=== PATIENT | female | born 1945 | race African-American/Black ===

== ENCOUNTER 2023-12-16 15:55 | Emergency (ER) | payer MEDICARE, MEDICAID ==
[~2023-12-16] VITALS: Ht 152.4 cm; Wt 65.0 kg
[2023-12-16 15:58] VITALS: O2SAT 95
[2023-12-16 16:34] LABS: BASOPHILS % 0.1 % (0.0-2.0); EOSINOPHILS % 0.1 % (0.0-5.0); HEMATOCRIT. 36.5 % (36.0-48.0); HEMOGLOBIN. 12.2 g/dL (12.0-16.0); MEAN CORPUSCULAR HEMOGLOBIN 28.8 pg (28.0-32.0); MEAN CORPUSCULAR HGB CONC 33.3 g/dL (31.0-37.0); MEAN CORPUSCULAR VOLUME 86.5 fL (81.0-99.0); MEAN PLATELET VOLUME 8.2 fl (7.4-10.4); MONOCYTES % 12.7 % (2.0-8.0); NEUTROPHILS % 78.1 % (40.0-76.0); PLATELET 243 x1000/uL (130-400); RED BLOOD CELL COUNT 4.22 mill/uL (4.2-5.4); WHITE BLOOD COUNT 11.9 x1000/uL (4.5-11.0)
[2023-12-16 16:38] LABS: CHLORIDE 102 mEq/L (98-107); POTASSIUM 3.4 mEq/L (3.5-5.1); SODIUM 135 mEq/L (136-145)
[2023-12-16 16:39] LABS: CARBON DIOXIDE 27 mEq/L (21-32)
[2023-12-16 16:40] LABS: CALCIUM 9.7 mg/dL (8.7-10.4)
[2023-12-16 16:44] LABS: CREATININE 0.9 mg/dL (0.6-1.0); GLUCOSE 135 mg/dL (70-105); UREA NITROGEN BLOOD 9 mg/dL (9-23)
[2023-12-16 16:45] LABS: TROPONIN I HIGH SENSITIVITY 7 ng/L (3.0-34)
[2023-12-16 16:46] LABS: ALANINE AMINOTRANSFERASE 29 IU/L (10-49); ALBUMIN 4.2 g/dL (3.2-4.8); ASPARTATE AMINOTRANSFERASE 27 IU/L (<34); BILIRUBIN TOTAL 0.9 mg/dL (0.1-1.0)
[2023-12-16 16:47] LABS: PROTEIN TOTAL 7.9 g/dL (6.0-8.3)
[2023-12-16] MEDS: SODIUM CHLORIDE 0.9% 1,000 ML IV ONE (17:35)
[2023-12-16 19:30] VITALS: TEMP 97.8
[2023-12-16 19:37] LABS: TROPONIN I HIGH SENSITIVITY 7 ng/L (3.0-34)
[2023-12-16 21:21] LABS: CLARITY URINE CLOUDY (CLEAR); COLOR URINE DARK YELLOW (YELLOW); GLUCOSE URINE NEGATIVE (NEGATIVE); KETONES URINE TRACE (NEGATIVE); LEUKOCYTE ESTERASE URINE 3+ (NEGATIVE); NITRITE URINE NEGATIVE (NEGATIVE); OCCULT BLOOD URINE 3+ (NEGATIVE); PROTEIN URINE 2+ (NEGATIVE); SPECIFIC GRAVITY URINE 1.013 (1.005-1.030)
[2023-12-16 21:34] LABS: BACTERIA URINE 4+; SQUAMOUS EPITHELIAL CELL URINE 1+ /lpf (RARE/1+)
[2023-12-16] MEDS ORDERED: CEPH500C2 MT (21:34)
[2023-12-16 21:35] LABS: WBC URINE 50-100 /hpf (0-2)
[2023-12-16] MEDS: CEFTRIAXONE 1GM/50ML 50 ML IV NR (21:53)
[2023-12-17 00:35] VITALS: BP 145/70; PULSE 70; RESP 18
== END 2023-12-17 01:37 ==
LOC: ER 15:55 → EDBEDREQ 17:21 → ER 12-17 01:37 → CANBEDREQ 12-17 21:09
DX: R53.1 Weakness (principal); F03.90 Unspecified dementia, unspecified severity, without behavioral disturbance, psychotic disturbance, mood disturbance, and anxiety; I10 Essential (primary) hypertension
CPT/HCPCS: 99285; 96374; 71045; 96361; 80053; 81003; 83880; 85025; 87086; 87186; 84484; 87077; 36415; 93005; J0696